=== PATIENT | male | born 1950 | race Caucasian/White ===

== ENCOUNTER 2021-09-20 17:01 | Emergency (ER) | payer MEDICARE, OTHER, SELFPAY ==
[2021-09-20 17:04] VITALS: BP 153/90; PULSE 97; RESP 18; TEMP 36.5; O2SAT 97; BMI 29.9
--- NOTE | 2021-09-20 17:07 | ED.WOUNDLAC ---
HPI - Wound/Laceration General Chief Complaint: Wound/Laceration Stated Complaint: Hand lac Time Seen by Provider: 09/20/21 17:06 Source: patient Mode of arrival: ambulatory Limitations: no limitations History of Present Illness HPI narrative: handheld saw kicked back while cutting wood and his R hand hit blade - lac on R palm of hand Onset (ago): minute(s) Extremity Location: right: hand Place: home Patient tetanus UTD: Yes Context: accidental Associated symptoms: pain Treatments prior to arrival: bandage Related Data Allergies Allergy/AdvReac Type Severity Reaction Status Date / Time No Known Allergies Allergy Verified 09/20/21 17:03 [No Known Allergies*] Review of Systems Review of Systems: Constitutional : No Fever, No Chills, Cardiovascular : No Chest Pain, No SOB Respiratory : No Dyspnea Gastrointestinal : No abdominal pain Musculoskeletal : No Joint Swelling Skin : No rash, positive skin laceration Neuro : No Weakness, No Numbness Psych : No SI/HI PMFSH Past Medical History Attestation statement: The following information was validated with the patient. Medical History (Updated 09/20/21 @ 17:39 by Adeline Pozo DO) Diabetes HTN (hypertension) Tibia/fibula fracture Social History Social History (Updated 09/20/21 @ 17:07 by Adeline Pozo DO) Patient Tobacco Use Status: Never used Tobacco Advance Directives: No Advance Directives Information Provided: No Physical Exam Vital Signs: Vital Signs: Last Vital Signs Temp 97.7 F 09/20/21 17:04 Pulse 97 09/20/21 17:04 Resp 18 09/20/21 17:04 BP 153/90 H 09/20/21 17:04 Pulse Ox 97 09/20/21 17:04 Body Mass Index 29.9 Appearance: Alert. Oriented X3. No acute distress. Eyes: Pupils equal, round and reactive to light. ENT: Pharynx normal. Neck: Normal inspection. Neck supple. CVS: Pulses normal. Respiratory: No respiratory distress. Abdomen: atraumatic Skin: Skin warm and dry. Normal skin color. R palm of hand jagged laceration 5cm with subq tissue noted distal NV intact, full ROM no obvious tendon injury seen Extremities: No lower extremity edema. Neuro: Oriented X 3. No motor deficit. No sensory deficit. MDM - Wound/Laceration MDM Narrative Medical decision making narrative: 71 yo male with laceration to palm of R hand - NV intact, no concern for fracture or FB - tdap is UTD. At this time full ROM no tendon involvement seen will suture and investigate wound further Procedures Laceration Laceration 1: Site: hand Side (If applicable): right Size (cm): 5 Description: flap Depth: simple, single layer Local Anesthetic: lidocaine 1% Amount of anesthesia used (mL): 5 Pre-repair: wound explored and irrigated extensively Skin layer closed with: nylon Size (cm): 4-0 Number of sutures: 7 Discharge Plan Discharge Clinical Impression: Laceration Patient Disposition: Home, Self-Care Instructions: Care For Your Stitches (ED), Laceration (ED) Additional Instructions: return to ED for any worsening symptoms or concerns keep clean and dry sutures come out in 7 to 10 days monitor for redness, swelling, fevers, yellow drainage - any signs of infection change dressing daily limit significant use of the hand to allow the stitches to heal
[2021-09-20] MEDS: Lidocaine HCl 1 % MPF 5 ML VIAL SUBCUT (17:15)
== END 2021-09-20 18:25 | disposition home or self-care (01) ==
PROVIDERS: Emergency Provider Emergency Medicine
DX: S61.411A Laceration without foreign body of right hand, initial encounter (principal); M79.641 Pain in right hand; W26.9XXA Contact with unspecified sharp object(s), initial encounter; Y93.9 Activity, unspecified; Y92.9 Unspecified place or not applicable; Y99.9 Unspecified external cause status
CPT/HCPCS: 12002; 99284